=== PATIENT | male | born 1940 | race Two or more races ===

== ENCOUNTER → 2020-08-20 08:00 | Outpatient (CLI) | payer OTHER ==
[~2020-08-20] VITALS: Ht 180.3 cm; Wt 88.5 kg
== END | disposition home or self-care (01) ==
LOC: RAD 08:00 → LAB 08:00 → ADM 10:00 → EDSTATUS 10:00 → SURH 08-27 07:00 → EDSTATUS 08-27 10:00
PROVIDERS: ATTEND Colon & Rectal Surgery
DX: Z01.818 Encounter for other preprocedural examination (principal); C20 Malignant neoplasm of rectum; Z85.048 Personal history of other malignant neoplasm of rectum, rectosigmoid junction, and anus; K94.09 Other complications of colostomy

== ENCOUNTER 2020-08-29 08:55 | Outpatient (CLI) | payer OTHER | END 2020-08-29 09:01 | disposition home or self-care (01) | LOC: NUCLEAR 08:55 | PROVIDERS: ATTEND Internal Medicine Geriatric Medicine | DX: I82.503 Chronic embolism and thrombosis of unspecified deep veins of lower extremity, bilateral (principal) ==

== ENCOUNTER 2020-08-29 09:22 | Outpatient (CLI) | payer OTHER | END 2020-08-29 18:00 | disposition home or self-care (01) | LOC: LAB 09:22 | PROVIDERS: ATTEND Internal Medicine Geriatric Medicine | DX: D69.49 Other primary thrombocytopenia (principal) ==

== ENCOUNTER 2021-01-07 07:37 | Inpatient (IN) | payer OTHER ==
[~2021-01-07] VITALS: Ht 177.8 cm; Wt 56.7 kg
[~2021-01-07 07:37] MED LIST: COZAAR50 MG; OMEPRAZOLE20 MG; SIMVASTATIN5 MG
[2021-01-23] MEDS ORDERED: ULTRAM50 MG PO (10:49)
== END 2021-01-23 12:38 | disposition home or self-care (01) | DRG 329 ==
LOC: SURH 07:37 → O/R 10:27 → SURH 10:27 → ICU 01-11 20:10 → SURH 01-18 14:24
PROVIDERS: ADMIT Colon & Rectal Surgery; ATTEND Colon & Rectal Surgery
PROC: 0WQF0ZZ Repair Abdominal Wall, Open Approach (ICD-10-PCS; 2021-01-07)
PROC: 0DBF0ZZ Excision of Right Large Intestine, Open Approach (ICD-10-PCS; principal; 2021-01-07 17:30)
PROC: 0D1E4Z4 Bypass Large Intestine to Cutaneous, Percutaneous Endoscopic Approach (ICD-10-PCS; 2021-01-10)
PROC: 0DN84ZZ Release Small Intestine, Percutaneous Endoscopic Approach (ICD-10-PCS; 2021-01-10)
PROC: 0BH17EZ Insertion of Endotracheal Airway into Trachea, Via Natural or Artificial Opening (ICD-10-PCS; 2021-01-10)
PROC: 5A1945Z Respiratory Ventilation, 24-96 Consecutive Hours (ICD-10-PCS; 2021-01-10)
PROC: 02HV33Z Insertion of Infusion Device into Superior Vena Cava, Percutaneous Approach (ICD-10-PCS; 2021-01-11)
PROC: 3E0F7SF Introduction of Other Gas into Respiratory Tract, Via Natural or Artificial Opening (ICD-10-PCS; 2021-01-13)
PROC: BW24ZZZ Computerized Tomography (CT Scan) of Chest and Abdomen (ICD-10-PCS; 2021-01-15)
DX: K94.09 Other complications of colostomy (principal); J95.821 Acute postprocedural respiratory failure; J15.8 Pneumonia due to other specified bacteria; J95.89 Other postprocedural complications and disorders of respiratory system, not elsewhere classified; K56.50 Intestinal adhesions [bands], unspecified as to partial versus complete obstruction; C20 Malignant neoplasm of rectum; K43.5 Parastomal hernia without obstruction or gangrene; I10 Essential (primary) hypertension; E78.00 Pure hypercholesterolemia, unspecified; B96.20 Unspecified Escherichia coli [E. coli] as the cause of diseases classified elsewhere